=== PATIENT | male | born 1990 | race Caucasian/White ===

== ENCOUNTER → 2016-06-22 | Outpatient (CLI) | payer BC ==
[2016-06-29 01:24] LABS: CASHEW IGE 4.68 KU/L; PEANUT IGE 1.12 KU/L; PECAN NUT IGE 4.36 KU/L; PISTACHIO IGE 4.23 KU/L; RAST BRAZIL NUT IGE 1.17 KU/L; RAST HAZELNUT IGE 13.9 KU/L
== END | disposition home or self-care (01) ==
LOC: C.LAB1850 14:46
PROVIDERS: ATTEND Internal Medicine Pulmonary Disease
DX: J30.81 Allergic rhinitis due to animal (cat) (dog) hair and dander (principal); J30.89 Other allergic rhinitis; J30.1 Allergic rhinitis due to pollen; T78.07XA Anaphylactic reaction due to milk and dairy products, initial encounter; T78.05XA Anaphylactic reaction due to tree nuts and seeds, initial encounter; J45.909 Unspecified asthma, uncomplicated